=== PATIENT | male | born 1955 | race African-American/Black ===

== ENCOUNTER 2017-08-17 15:20 | Emergency (ER) | payer MEDICARE ==
[2016-01-03 10:15] VITALS: BMI 41.6
[~2017-08-17 15:20] MED LIST: BAYER CHEWABLE81 MG PO; CIPRO500 MG PO; GEMFIBROZIL600 MG PO; GLUCOPHAGE1000 MG PO; GLUCOPHAGE500 MG PO; GLUCOTROL 5 MG T5 MG PO; HUMALOG 30100 UNITS/ SC; LANTUS SOL100 UNIT/1 SQ; LISINOPRIL-HCTZ1 T11 PO; LISINOPRIL2.5 MG PO; MULTI-DAY VITAM1 TAB PO; NORVASC5 MG PO; PRINIVIL20 MG PO; ZOCOR40 MG PO
== END 2017-08-17 17:47 | disposition home or self-care (01) ==
LOC: D.ER 15:20
DX: M62.838 Other muscle spasm (principal); S16.1XXA Strain of muscle, fascia and tendon at neck level, initial encounter; V43.62XA Car passenger injured in collision with other type car in traffic accident, initial encounter; Y93.89 Activity, other specified; Y92.410 Unspecified street and highway as the place of occurrence of the external cause; S29.012A Strain of muscle and tendon of back wall of thorax, initial encounter; S39.012A Strain of muscle, fascia and tendon of lower back, initial encounter; I10 Essential (primary) hypertension; E11.9 Type 2 diabetes mellitus without complications; Z79.4 Long term (current) use of insulin

== ENCOUNTER 2017-11-01 20:54 | Inpatient (IN) | payer MEDICARE, MEDICAID ==
[~2017-11-01] VITALS: Ht 167.6 cm; Wt 110.9 kg
--- NOTE | ~2017-11-01 | HP ---
PATIENT: SHERRY FOLEY MEDICAL RECORD: [id number] ACCOUNT: [id number] LOCATION:[facility] D.2303 : 53 ADMISSION DATE: 11/01/17 HISTORY AND PHYSICAL EXAMINATION REASON FOR ADMISSION: Dizziness and not feeling well with nausea. HISTORY OF PRESENT ILLNESS: The patient is a 62-year-old -Norwegian male with history of poorly controlled diabetes mellitus type 2. His brother tried to help him with his insulin, but due to poor compliance, he is not well controlled. He states he has been taking his insulin appropriately, but over the weekend, had been to a celebration and ate a lot of starches and blood sugar became quite high, became very dizzy and lightheaded. He presented to the Emergency Room for this reason and was found to have small positive serum ketones and blood sugar over 800. He is admitted to the ICU and placed on insulin drip protocol. Denies any recent fever, severe abdominal pain or dysuria. PAST MEDICAL HISTORY: Type 2 diabetes mellitus poorly controlled, morbid obesity, BPH, mild mental retardation. He is admitted for uncontrolled diabetes, azotemia in November of 2013, essential hypertension, hyperlipidemia, adult obstructive sleep apnea, poorly compliant on BiPAP, mitral regurgitation mild. He is admitted for acute renal insufficiency due to dehydration 01/02/2016, responding to IV fluids. He had a fall with right rotator cuff injury in July, which is improved. Osteoarthritis. PAST SURGICAL HISTORY: Hemorrhoidectomy. FAMILY HISTORY: Father and mother . Father had hypertension. Mother had hypertension. Sister with CAD who is still alive. SOCIAL HISTORY: Nonsmoker, nondrinker. His brother tries to help care for him. He has worked at a [employer] in the past. MEDICATIONS: Lisinopril HCT 20/25 one q.a.m., Lantus SoloSTAR 40 units in the morning, 20 units in the evening subq, metformin 1000 mg p.o. b.i.d., amlodipine 5 mg b.i.d., baclofen 10 mg h.s. p.r.n. muscle spasm, Meloxicam 15 mg p.o. daily, atorvastatin 20 mg with evening meal, gemfibrozil 600 mg b.i.d., Proventil HFA 1-2 puffs q.8 hours p.r.n. wheezing, aspirin 325 mg a day, multivitamin 1 daily. REVIEW OF SYSTEMS: GENERAL: Fatigue for the last 24 hours without fever and malaise. HEENT: No recent new visual change, sinus congestion, sore throat or hearing difficulty. RESPIRATORY: No SOB or cough. CARDIAC: No chest pain or palpitations. GASTROINTESTINAL: Nausea with some vomiting on the day of admission. Denies change in stools, diarrhea, blood per rectum. GENITOURINARY: Nocturia once nightly. ENDOCRINE: Denies polyuria. Denies any polydipsia. MUSCULOSKELETAL: Has arthralgias in the lumbar spine, no sciatica. INTEGUMENT: No rash or itching. PSYCHIATRIC: Denies depressed mood. HISTORY AND PHYSICAL [id number] SHERRY FOLEY PHYSICAL EXAMINATION: VITAL SIGNS: Temperature 97, heart rate 90 and regular, respirations 18, blood pressure 100/55, with a sat 99% on room air. Height is 5 feet 10 inches, weight is 148 kilograms, BMI of 46.9. HEENT: Normocephalic. Eyes are clear, nonicteric. Mucous membranes are dry. NECK: Supple. CHEST: Lungs are clear throughout. HEART: Tachycardic without murmur or gallop. ABDOMEN: Grossly obese, nontender. No organomegaly. GENITOURINARY: Deferred. EXTREMITIES: He has 2+ mild pedal edema bilaterally. SKIN: No obvious skin lesions on his feet. NEUROLOGIC: He has decreased sensation to touch in bottoms of both feet. He is oriented to person, place, and time. Cranial nerves grossly intact. Gait is normal. LABORATORY DATA: Initial blood sugar was 892, BUN and creatinine are 38 and 2.6. Sodium is 125, potassium 5.6. Serum ketones are small. ASSESSMENT: 1. Type 2 diabetes mellitus, poorly controlled, now with ketosis, but normal serum CO2. 2. Hyperkalemia due to acidosis. 3. Hyponatremia due to hyperglycemia. 4. Acute renal insufficiency due to dehydration. 5. Hypertension. 6. Hyperlipidemia. 7. Morbid obesity. 8. Obstructive sleep apnea. 9. Osteoarthritis. 10. Mild mental retardation. 11. Poor medical compliance. PLAN: The patient is admitted to the ICU for IV insulin drip until blood sugars corrected. We will monitor potassium closely. Give IV fluids for renal insufficiency. Further workup pending clinical course. TRANSINT:[id number] Voice Confirmation ID: [id number] DOCUMENT ID: [id number] KYLE STEEL MD at 0756 CC: [id number] DICTATION DATE: 11/03/17833 GENERAL WAREHOUSE WORKER: 11/03/17 1036 ADM IN [facility] [address] [place] [address]
[2017-11-01 22:43] LABS: BASOPHILS 0.6 % (0-2); EOSINOPHILS 3.2 % (0-7); HEMATOCRIT 42.3 % (42.0-54.0); HEMOGLOBIN 14.4 g/dL (13.5-17.5); IMMATURE GRANULOCYTES 0.3 % (0-5); MCH 31.4 pg (26.0-34.0); MCV 92.4 fL (80.0-100.0); MEAN PLATELET VOLUME 10.6 fL (7.4-10.4); MONOCYTES 9.1 % (2-11); NEUTROPHILS 50.8 % (40-80); PLATELET COUNT 238 10x3/uL (130-400); RBC 4.58 10x6/uL (4.20-6.10); RDW 13.3 % (11.5-14.5); WBC 7.2 10x3/uL (4.8-10.8)
[2017-11-01 22:57] LABS: ANION GAP 16.1 mmol/L (8-16); BILIRUBIN - TOTAL 0.5 mg/dL (0.2-1.3); CALCIUM 9.8 mg/dL (8.5-10.1); CARBON DIOXIDE 28.5 mmol/L (21.0-32.0); CREATININE - SERUM 2.6 mg/dL (0.6-1.3); POTASSIUM - SERUM 5.6 mmol/L (3.5-5.1)
[2017-11-02] VITALS (24 sets, daily range): BP systolic 83–146; BP diastolic 47–80; Ht 167.6 cm; Wt 110.9 kg
[2017-11-02 00:05] LABS: MAGNESIUM - SERUM 2.7 mg/dL (1.8-2.4); PHOSPHOROUS 3.9 mg/dL (2.5-4.9)
[2017-11-02 00:34] LABS: APPEARANCE CLEAR (CLEAR); BILIRUBIN NEGATIVE (NEGATIVE); COLOR YELLOW (YELLOW); GLUCOSE 1000 mg/dL (NEGATIVE); KETONE NEGATIVE (NEGATIVE); NITRITE NEGATIVE (NEGATIVE); PROTEIN NEGATIVE (NEGATIVE); SPECIFIC GRAVITY 1.015 (1.005-1.020); UROBILINOGEN NORMAL (NORMAL)
[2017-11-02 04:55] LABS: BASOPHILS 0.6 % (0-2); EOSINOPHILS 2.8 % (0-7); HEMATOCRIT 36.3 % (42.0-54.0); HEMOGLOBIN 12.5 g/dL (13.5-17.5); IMMATURE GRANULOCYTES 0.4 % (0-5); LYMPHOCYTES 41.9 % (15-50); MCH 30.9 pg (26.0-34.0); MCHC 34.4 g/dL (31.0-37.0); MEAN PLATELET VOLUME 10.2 fL (7.4-10.4); MONOCYTES 6.9 % (2-11); NEUTROPHILS 47.4 % (40-80); PLATELET COUNT 230 10x3/uL (130-400); RBC 4.05 10x6/uL (4.20-6.10); RDW 12.7 % (11.5-14.5); WBC 6.8 10x3/uL (4.8-10.8)
[2017-11-02 05:05] LABS: MCV 89.6 fL (80.0-100.0)
[2017-11-02 05:53] LABS: ANION GAP 16.9 mmol/L (8-16); CALCIUM 8.9 mg/dL (8.5-10.1); CARBON DIOXIDE 21.7 mmol/L (21.0-32.0); CREATININE - SERUM 2.1 mg/dL (0.6-1.3); MAGNESIUM - SERUM 2.3 mg/dL (1.8-2.4)
[2017-11-02 05:57] LABS: POTASSIUM - SERUM 3.6 mmol/L (3.5-5.1)
[2017-11-02 09:43] LABS: ANION GAP 15.9 mmol/L (8-16); CALCIUM 9.3 mg/dL (8.5-10.1); CARBON DIOXIDE 25.9 mmol/L (21.0-32.0); CREATININE - SERUM 2.3 mg/dL (0.6-1.3); MAGNESIUM - SERUM 2.4 mg/dL (1.8-2.4); POTASSIUM - SERUM 3.8 mmol/L (3.5-5.1)
[2017-11-02 13:11] LABS: ANION GAP 17.1 mmol/L (8-16); CARBON DIOXIDE 24.6 mmol/L (21.0-32.0); CREATININE - SERUM 2.1 mg/dL (0.6-1.3); MAGNESIUM - SERUM 2.3 mg/dL (1.8-2.4); POTASSIUM - SERUM 3.7 mmol/L (3.5-5.1)
[2017-11-03] VITALS (24 sets, daily range): BP systolic 96–155; BP diastolic 56–102
[2017-11-03 04:45] LABS: HEMATOCRIT 34.9 % (42.0-54.0); HEMOGLOBIN 12.1 g/dL (13.5-17.5); MCH 31.3 pg (26.0-34.0); MCHC 34.7 g/dL (31.0-37.0); MCV 90.4 fL (80.0-100.0); MEAN PLATELET VOLUME 10.4 fL (7.4-10.4); PLATELET COUNT 213 10x3/uL (130-400); RBC 3.86 10x6/uL (4.20-6.10); RDW 12.8 % (11.5-14.5); WBC 7.4 10x3/uL (4.8-10.8)
[2017-11-03 04:57] LABS: ANION GAP 13.8 mmol/L (8-16); CALCIUM 8.9 mg/dL (8.5-10.1); CARBON DIOXIDE 24.7 mmol/L (21.0-32.0); POTASSIUM - SERUM 3.5 mmol/L (3.5-5.1)
[2017-11-03 05:00] LABS: CREATININE - SERUM 1.5 mg/dL (0.6-1.3)
[2017-11-03 05:49] LABS: EOSINOPHILS 6 % (0-7); LYMPHOCYTES 63 % (15-50); MONOCYTES 3 % (2-11); NEUTROPHILS 28 % (40-80); PLATELET ESTIMATE NORMAL
[2017-11-04] VITALS (21 sets, daily range): BP systolic 110–159; BP diastolic 59–100
[2017-11-04 05:05] LABS: EOSINOPHILS 5.5 % (0-7); HEMATOCRIT 34.7 % (42.0-54.0); HEMOGLOBIN 11.7 g/dL (13.5-17.5); IMMATURE GRANULOCYTES 0.3 % (0-5); LYMPHOCYTES 53.4 % (15-50); MCH 30.6 pg (26.0-34.0); MCHC 33.7 g/dL (31.0-37.0); MCV 90.8 fL (80.0-100.0); MEAN PLATELET VOLUME 10.4 fL (7.4-10.4); MONOCYTES 11.4 % (2-11); NEUTROPHILS 28.4 % (40-80); PLATELET COUNT 216 10x3/uL (130-400); RBC 3.82 10x6/uL (4.20-6.10); RDW 12.7 % (11.5-14.5); WBC 7.3 10x3/uL (4.8-10.8)
[2017-11-05 02:53] LABS: BASOPHILS 0.9 % (0-2); EOSINOPHILS 5.2 % (0-7); HEMATOCRIT 34.3 % (42.0-54.0); HEMOGLOBIN 11.4 g/dL (13.5-17.5); IMMATURE GRANULOCYTES 0.6 % (0-5); LYMPHOCYTES 52.4 % (15-50); MCH 30.5 pg (26.0-34.0); MCHC 33.2 g/dL (31.0-37.0); MCV 91.7 fL (80.0-100.0); MEAN PLATELET VOLUME 10.1 fL (7.4-10.4); NEUTROPHILS 28.9 % (40-80); PLATELET COUNT 207 10x3/uL (130-400); RBC 3.74 10x6/uL (4.20-6.10); RDW 12.7 % (11.5-14.5); WBC 6.7 10x3/uL (4.8-10.8)
[2017-11-05 03:00] VITALS: BP 146/82
[2017-11-05 03:03] LABS: CALCIUM 9.5 mg/dL (8.5-10.1); CARBON DIOXIDE 26.2 mmol/L (21.0-32.0); CREATININE - SERUM 1.3 mg/dL (0.6-1.3)
[2017-11-05 03:09] LABS: POTASSIUM - SERUM 4.2 mmol/L (3.5-5.1)
[2017-11-05 07:00] VITALS: BP 150/78
[2017-11-05] MEDS ORDERED: GLUCOPHAGE500 MG PO (07:48)
[2017-11-05] MEDS ORDERED: LANTUS SOL100 UNIT/1 SC (07:48)
[2017-11-05 08:00] VITALS: BP 186/94
[2017-11-05 09:00] VITALS: BP 168/83
== END 2017-11-05 11:19 | disposition home or self-care (01) | DRG 638 ==
LOC: D.ER 20:54 → D.EDHOLD 23:47 → D.ICU 23:47 → D.CVICU 23:47 → D.ICU 11-02 00:34
PROVIDERS: Family Medicine
DX: E11.10 Type 2 diabetes mellitus with ketoacidosis without coma (principal); E87.1 Hypo-osmolality and hyponatremia; I10 Essential (primary) hypertension; E78.5 Hyperlipidemia, unspecified; N28.9 Disorder of kidney and ureter, unspecified; D64.9 Anemia, unspecified; E86.0 Dehydration; E87.5 Hyperkalemia; R41.0 Disorientation, unspecified; E66.01 Morbid (severe) obesity due to excess calories; Z68.38 Body mass index [BMI] 38.0-38.9, adult; F70 Mild intellectual disabilities

== ENCOUNTER 2018-05-17 22:17 | Emergency (ER) | payer MEDICARE, MEDICAID ==
[~2018-05-17] VITALS: Ht 167.6 cm; Wt 143.2 kg
[~2018-05-17 22:17] MED LIST changes: +LANTUS SOL100 UNIT/1 SC
[2018-05-17 22:27] VITALS: Ht 167.6 cm; Wt 143.2 kg
[2018-05-17 22:58] LABS: BASOPHILS 0.8 % (0-2); EOSINOPHILS 5.2 % (0-7); HEMATOCRIT 33.8 % (42.0-54.0); HEMOGLOBIN 11.3 g/dL (13.5-17.5); IMMATURE GRANULOCYTES 0.3 % (0-5); LYMPHOCYTES 36.6 % (15-50); MCH 30.3 pg (26.0-34.0); MCHC 33.4 g/dL (31.0-37.0); MCV 90.6 fL (80.0-100.0); MEAN PLATELET VOLUME 9.5 fL (7.4-10.4); NEUTROPHILS 46.1 % (40-80); RBC 3.73 10x6/uL (4.20-6.10); RDW 15.4 % (11.5-14.5); WBC 7.5 10x3/uL (4.8-10.8)
[2018-05-17 22:59] LABS: PLATELET COUNT 257 10x3/uL (130-400)
[2018-05-17 23:16] LABS: ALBUMIN 3.3 g/dL (3.4-5.0); ALKALINE PHOSPHATASE 68 U/L (46-116); ALT (SGPT) 25 U/L (10-68); CALC OSMOLALITY 283 mosm/kg (275-300); CALCIUM 8.2 mg/dL (8.5-10.1); CARBON DIOXIDE 27.8 mmol/L (21.0-32.0); CHLORIDE - SERUM 101 mmol/L (98-107); CREATININE - SERUM 1.1 mg/dL (0.6-1.3); PROTEIN - SERUM 8.3 g/dL (6.4-8.2); SODIUM 139 mmol/L (136-145); UREA NITROGEN 15 mg/dL (7-18); eGFR NON AFRICAN AMERICAN 71 mL/min (90-120)
[2018-05-17 23:18] LABS: GLUCOSE 197 mg/dL (74-106)
[2018-05-17 23:21] LABS: APTT 28.1 SECONDS (22.8-39.4); INR 1.05 (0.85-1.17); PROTIME 13.2 SECONDS (11.6-15.0)
[2018-05-17 23:25] LABS: CKMB 2.9 U/L (0.0-3.6); PRO BNP 113 pg/mL (0-125)
[2018-05-17 23:30] LABS: CREATINE KINASE 1649 UL (21-232); TROPONIN-I < 0.017 ng/mL (0.000-0.060)
[2018-05-18] MEDS ORDERED: ALBUTEROL SULF8.5 GM INH (01:48)
[2018-05-18] MEDS ORDERED: TAMIFLU75 MG PO (01:48)
[2018-05-18 02:01] VITALS: BP 170/87
== END 2018-05-18 02:02 | disposition home or self-care (01) ==
LOC: D.ER 22:17
PROVIDERS: Family Medicine
DX: J11.1 Influenza due to unidentified influenza virus with other respiratory manifestations (principal); E86.0 Dehydration; R74.8 Abnormal levels of other serum enzymes; R07.9 Chest pain, unspecified; R06.02 Shortness of breath; E11.9 Type 2 diabetes mellitus without complications

== ENCOUNTER 2018-05-18 16:24 | Inpatient (IN) | payer MEDICARE, MEDICAID ==
[~2018-05-18] VITALS: Ht 167.6 cm; Wt 117.3 kg
--- NOTE | ~2018-05-18 | HP ---
PATIENT: SHERRY FOLEY MEDICAL RECORD: [id number] ACCOUNT: [id number] LOCATION:[address]01 : 53 ADMISSION DATE: 05/18/18 PCP: KYLE STEEL MD HISTORY AND PHYSICAL EXAMINATION HISTORY OF PRESENT ILLNESS: A 63-year-old -Emirati male presented with 4-day history of cough, congestion, and high fever to 101. Became more short of breath and presented to the Emergency Room yesterday at [place]. Chest x-ray showed some interstitial changes, no clarissa pneumonia. His blood gas showed a pO2 of 81 on 2 liters. He did not see a room air O2 sat recorded. He has tested negative for flu A and B, but he was exposed to flu by some siblings. He has got worse overnight and in our office this morning, he desaturated to 86%. On 2 liters, corrected to 92%. He has audible wheezes, coughing, and just does not feel well. He complains of headache, generalized myalgias. He had sputum production and is somewhat off color. PAST MEDICAL HISTORY: Poorly controlled type 2 diabetes mellitus, exogenous obesity, reactive airways, hypertension, obstructive sleep apnea, mild mental retardation, hyperlipidemia, mild mitral regurgitation, history of renal insufficiency due to dehydration in 2015, rotator cuff injury in the right shoulder in July of 2015. PAST SURGICAL HISTORY: Hemorrhoidectomy. FAMILY HISTORY: Father and mother are . Father had hypertension. Mother had hypertension. One sister with CAD, is still living. He has 1 brother who cares for him. SOCIAL HISTORY: Nonsmoker, nondrinker. He has worked for [employer] in the past. CURRENT MEDICATIONS: Atrovent nasal spray 0.03%, 1 squirt each nostril twice a day; Zyrtec 10 mg p.o. daily; Flonase nasal spray 2 nasal sprays each nostril daily; amlodipine 5 mg b.i.d., metformin 1000 mg p.o. b.i.d.; simvastatin 40 mg at bedtime; Lantus 40 units subQ b.i.d. a.c.; gemfibrozil 600 mg p.o. b.i.d., aspirin 81 mg daily, lisinopril 20, HCTZ 25 one tab daily, and multivitamin 1 daily. ALLERGIES: PENICILLIN. REVIEW OF SYSTEMS: GENERAL: He has got fever to 101 for the last 2-3 days. He has had malaise, poor appetite, and headache. HEENT: No recent visual change, sinus congestion, sore throat, but positive for headache. He has had some photophobia. RESPIRATORY: He has wheezing and coughing up some yellowish sputum. He feels short of breath when he walks. CARDIAC: No exertional chest pain, claudication, or increasing edema. GASTROINTESTINAL: Has some nausea without vomiting, change in stools or blood per rectum. GENITOURINARY: No dysuria. He has nocturia once nightly. ENDOCRINE: Denies polyuria, polydipsia, heat or cold intolerance. NEUROLOGIC: No history of stroke, TIA, or vascular headaches. He has a low IQ. MUSCULOSKELETAL: Denies cervical neck pain, lumbago at this time. PSYCHIATRIC: Denies depress mood. HISTORY AND PHYSICAL [id number] SHERRY FOLEY PHYSICAL EXAMINATION: VITAL SIGNS: Weight 267 pounds, height 5 feet 6 inches with a 43 BMI. O2 sat was 86% on room air, correcting to 92% on 2 liters; heart rate was 90 and regular; blood pressure 162/80; temperature 99 degrees Fahrenheit. GENERAL: The patient appears mildly ill, but alert. HEENT: Eyes are clear. Oropharynx unremarkable. NECK: Supple. CHEST: He has expiratory wheezes bilaterally without rales. HEART: Regular rate and rhythm. ABDOMEN: Obese, soft, nontender, no organomegaly. EXTREMITIES: 2+ bipedal edema. NEUROLOGICAL: Grossly intact. Gait is normal. LABORATORY DATA: Labs last night are noted including negative flu A and B, although he has had recent exposure. Chest x-ray showing some interstitial changes. ASSESSMENT: 1. Asthmatic bronchitis, failing outpatient therapy. 2. Probable influenza. 3. Obstructive sleep apnea. 4. Hypertension. 5. Obesity, uncontrolled. 6. Diabetes mellitus. 7. Hyperlipidemia. PLAN: The patient admitted to the hospital for respiratory isolation, IV antibiotics, updrafts, antipyretics. Further workup pending clinical course and sliding scale insulin. TRANSINT:[id number] Voice Confirmation ID: [id number] DOCUMENT ID: [id number] KYLE STEEL MD at 0937 CC: [id number] DICTATION DATE: 05/18/18 1701 HYDROELECTRIC PRODUCTION TECHNICIAN: 05/18/18 1800 ADM IN [facility] [address] [place] [id number]
--- NOTE | ~2018-05-18 | MORECARE ---
CASE MANAGEMENT DISCHARGE SUMMARY PATIENT: SHERRY FOLEY UNIT: [id number] ADM DATE: 05/18/18 AGE: 63 : 53 SEX: M ROOM/BED: D.2102 AUTHOR: AMY MICHAELS PHYSICIAN: REFERRING PHYSICIAN: KYLE STEEL MD DATE OF SERVICE: 05/23/18 Discharge Plan Patient Name: SHERRY FOLEY [facility] [facility] 1955 Planned Disposition: Home Anticipated Discharge Date: 05/22/18 Discharge Date: 05/22/2018 Expected LOS: 4 Initial Reviewer: [email or web address] Initial Review Date: 05/23/2018 Generated: 05/23/18 12:01 pm Patient Name: SHERRY FOLEY Page [id number] at 1101 All edits/amendments must be made on the electronic document DICTATION DATE: 05/23/181100 PREKINDERGARTEN TEACHER: LUIS 05/23/18 110 RPT#: [id number] DC DATE:05/22/18 STATUS: DIS IN [facility] [address] [address] END OF REPORT
[~2018-05-18 16:24] MED LIST changes: +ALBUTEROL SULF8.5 GM INH; +TAMIFLU75 MG PO
[2018-05-18 17:46] VITALS: BP 184/78; Ht 167.6 cm; Wt 117.3 kg
[2018-05-18 21:24] VITALS: BP 145/64
[2018-05-18 21:33] LABS: BASOPHILS 0.7 % (0-2); EOSINOPHILS 2.5 % (0-7); HEMATOCRIT 35.3 % (42.0-54.0); HEMOGLOBIN 11.8 g/dL (13.5-17.5); IMMATURE GRANULOCYTES 0.3 % (0-5); LYMPHOCYTES 38.7 % (15-50); MCH 30.2 pg (26.0-34.0); MCHC 33.4 g/dL (31.0-37.0); MCV 90.3 fL (80.0-100.0); MEAN PLATELET VOLUME 9.4 fL (7.4-10.4); MONOCYTES 6.3 % (2-11); NEUTROPHILS 51.5 % (40-80); PLATELET COUNT 252 10x3/uL (130-400); RBC 3.91 10x6/uL (4.20-6.10); RDW 15.3 % (11.5-14.5); WBC 7.6 10x3/uL (4.8-10.8)
[2018-05-18 22:03] LABS: CARBON DIOXIDE 28.7 mmol/L (21.0-32.0); CREATININE - SERUM 1.1 mg/dL (0.6-1.3); POTASSIUM - SERUM 3.7 mmol/L (3.5-5.1)
[2018-05-19] VITALS: BP 125/73
[2018-05-19 05:02] VITALS: BP 147/72
[2018-05-19 08:07] VITALS: BP 141/55
[2018-05-19 11:44] VITALS: BP 140/52
[2018-05-19 20:00] VITALS: BP 133/68
[2018-05-20 04:00] VITALS: BP 134/70
[2018-05-20 08:00] VITALS: BP 117/69
[2018-05-20 11:42] VITALS: BP 115/70
[2018-05-20 12:34] LABS: APPEARANCE CLEAR (CLEAR); COLOR YELLOW (YELLOW); GLUCOSE 50 mg/dL (NEGATIVE); KETONE NEGATIVE (NEGATIVE); NITRITE NEGATIVE (NEGATIVE); PROTEIN NEGATIVE (NEGATIVE)
[2018-05-20 12:35] LABS: BILIRUBIN NEGATIVE (NEGATIVE); UROBILINOGEN NORMAL (NORMAL)
[2018-05-20 16:09] VITALS: BP 134/79
[2018-05-20 17:55] VITALS: BP 148/65
[2018-05-20 23:55] VITALS: BP 140/65
[2018-05-21 03:45] VITALS: BP 156/77
[2018-05-21 08:26] VITALS: BP 160/75
[2018-05-21 11:11] VITALS: BP 150/72
[2018-05-21 15:07] VITALS: BP 158/70
[2018-05-21 17:00] VITALS: BP 143/65
[2018-05-22] VITALS: BP 135/63
[2018-05-22 05:37] VITALS: BP 112/60
[2018-05-22] MEDS ORDERED: ZITHROMAX250 MG PO (14:38)
[2018-05-22] MEDS ORDERED: LEVAQUIN750 MG PO (14:38)
== END 2018-05-22 16:22 | disposition home or self-care (01) | DRG 194 ==
LOC: D.M2 16:24 → D.SDCHOLD 16:24 → D.M2 16:37 → D.SDCHOLD 05-19 18:40 → D.M2 05-19 18:43
PROVIDERS: Family Medicine
DX: J11.00 Influenza due to unidentified influenza virus with unspecified type of pneumonia (principal); J45.901 Unspecified asthma with (acute) exacerbation; J11.1 Influenza due to unidentified influenza virus with other respiratory manifestations; N28.9 Disorder of kidney and ureter, unspecified; E11.9 Type 2 diabetes mellitus without complications; G47.33 Obstructive sleep apnea (adult) (pediatric); I10 Essential (primary) hypertension; E78.5 Hyperlipidemia, unspecified

== ENCOUNTER 2018-08-20 01:42 | Emergency (ER) | payer OTHER ==
[~2018-08-20] VITALS: Ht 177.8 cm; Wt 129.5 kg
[~2018-08-20 01:42] MED LIST changes: +LEVAQUIN750 MG PO; +ZITHROMAX250 MG PO
[2018-08-20 01:49] VITALS: Ht 177.8 cm; Wt 129.5 kg
[2018-08-20 02:12] LABS: BASOPHILS 1.2 % (0-2); EOSINOPHILS 5.2 % (0-7); HEMATOCRIT 41.7 % (42.0-54.0); IMMATURE GRANULOCYTES 0.3 % (0-5); LYMPHOCYTES 54.8 % (15-50); MCH 30.9 pg (26.0-34.0); MCHC 33.6 g/dL (31.0-37.0); MCV 92.1 fL (80.0-100.0); NEUTROPHILS 31.5 % (40-80); PLATELET COUNT 227 10x3/uL (130-400); RBC 4.53 10x6/uL (4.20-6.10); RDW 13.8 % (11.5-14.5); WBC 6.6 10x3/uL (4.8-10.8)
[2018-08-20 02:26] LABS: KETONE - SERUM NEGATIVE (NEGATIVE)
[2018-08-20 02:28] LABS: ALBUMIN 3.8 g/dL (3.4-5.0); ALKALINE PHOSPHATASE 180 U/L (46-116); ALT (SGPT) 18 U/L (10-68); BILIRUBIN - TOTAL 0.18 mg/dL (0.2-1.3); CALCIUM 9.4 mg/dL (8.5-10.1); CARBON DIOXIDE 26.3 mmol/L (21.0-32.0); CHLORIDE - SERUM 99 mmol/L (98-107); CREATININE - SERUM 1.3 mg/dL (0.6-1.3); MAGNESIUM - SERUM 1.7 mg/dL (1.8-2.4); POTASSIUM - SERUM 4.8 mmol/L (3.5-5.1); PROTEIN - SERUM 8.5 g/dL (6.4-8.2); SODIUM 134 mmol/L (136-145); UREA NITROGEN 19 mg/dL (7-18); eGFR NON AFRICAN AMERICAN 59 mL/min (90-120)
[2018-08-20 02:30] LABS: CALC OSMOLALITY 293 mosm/kg (275-300); GLUCOSE 539 mg/dL (74-106)
[2018-08-20 02:49] LABS: APPEARANCE CLEAR (CLEAR); BILIRUBIN NEGATIVE (NEGATIVE); COLOR YELLOW (YELLOW); GLUCOSE 1000 mg/dL (NEGATIVE); KETONE NEGATIVE (NEGATIVE); NITRITE NEGATIVE (NEGATIVE); PROTEIN NEGATIVE (NEGATIVE); UROBILINOGEN NORMAL (NORMAL)
[2018-08-20 03:40] VITALS: BP 146/78
== END 2018-08-20 03:40 | disposition home or self-care (01) ==
LOC: D.ER 01:42
PROVIDERS: Family Medicine
DX: E11.65 Type 2 diabetes mellitus with hyperglycemia (principal); Z79.4 Long term (current) use of insulin

== ENCOUNTER 2019-05-25 14:59 | Inpatient (IN) | payer OTHER ==
[2019-05-25] VITALS (30 sets, daily range): BP systolic 80–134; BP diastolic 23–77
[~2019-05-25] VITALS: Ht 177.8 cm; Wt 100.0 kg
--- NOTE | ~2019-05-25 | EC ---
PATIENT:SHERRY FOLEY DATE OF SERVICE: 05/25/19 SEX: M MEDICAL RECORD: [id number] DATE OF : [birth year] LOCATION:D.M2 D.213 AGE OF PATIENT: 64 ADMISSION DATE: 05/25/19 REFERRING PHYSICIAN: INTERPRETING PHYSICIAN: ROMARIO GROSS MD ECHOCARDIOGRAM REPORT ECHO CHARGES 4 ECHO COMPLETE Date: 05/26/19 CLINICAL DIAGNOSIS: ASSESS FOR CHF ECHOCARDIOGRAPHIC MEASUREMENTS (adult normal given) AC root (d.<3.7cm) 2.9 cm LV Septum d (<1.2 cm> 1.2 cm Valve Excursion 2.1 cm LV Septum (systole) 1.6 cm Left Atria (s.<4.0cm> 3.9 cm LVPW d(<1.2cm) 0.9 cm RV (d.<2.3cm) 2.7 cm LVPW (sytole) 1.1 cm LV diastole(<5.6CM) 4.7 cm MV E-F(>70mm/sec) cm LV systole 3.4 cm LVOT Diameter 1.8 cm MV exc.(>10mm) cm Est.ejection fraction (50-75%) % DOPPLER: LVIT cm/sec A 79 cm/sec E 104 cm/sec LA cm/sec RVSP 21.2 mmHg LVOT 125 cm/sec AOP1/2T m/s Asc. Ao 138 cm/sec RVOT 106 cm/sec RA cm/sec PA 107 cm/sec AV Gradient Peak 7.6 mmHg AV Mean 4.2 mmHg AV Area 2.5 cm MV Gradient Peak 5.6 mmHg MV Mean 2.3 mmHg MV Area cm COMMENTS: Mucker [place]: [place] HAIDEREDEN ABRAHAM Special Effects Designer: 1 Dr. Gross TAPE# PACS Pericardial Effusion N DATE OF SERVICE: 05/26/2019 ECHOCARDIOGRAM FINDINGS: 1. Left ventricular chamber size is within normal limits. Left ventricular systolic function is normal. Overall ejection fraction estimated at 55% to 60%. 2. Left atrium, right atrium, and right ventricle chamber sizes are within normal limits. 3. Valvular structures have normal structure and motion. ECHOCARDIOGRAM REPORT [id number] SHERRY FOLEY 4. Doppler interrogation reveals no significant valvular insufficiency or stenosis. 5. No evidence of pericardial effusion or left ventricular thrombus. TRANSINT:[id number] Voice Confirmation ID: [id number] DOCUMENT ID: [id number] ROMARIO GROSS MD CC: [id number] DICTATION DATE: 05/26/19 1252 GANG PUSHER: 05/26/19 1717 ADM IN [place] [id number] [place] [id number]
[2019-05-25 15:18] LABS: BASOPHILS 0.8 % (0-2); HEMATOCRIT 41.2 % (42.0-54.0); HEMOGLOBIN 13.5 g/dL (13.5-17.5); IMMATURE GRANULOCYTES 0.3 % (0-5); LYMPHOCYTES 32.6 % (15-50); MCH 31.3 pg (26.0-34.0); MCHC 32.8 g/dL (31.0-37.0); MCV 95.4 fL (80.0-100.0); MEAN PLATELET VOLUME 10.9 fL (7.4-10.4); MONOCYTES 6.5 % (2-11); NEUTROPHILS 57.8 % (40-80); PLATELET COUNT 252 10x3/uL (130-400); RBC 4.32 10x6/uL (4.20-6.10); RDW 13.7 % (11.5-14.5); WBC 6.6 10x3/uL (4.8-10.8)
[2019-05-25 15:25] LABS: KETONE - SERUM SMALL mg/dL (NEGATIVE)
[2019-05-25 15:27] LABS: APTT 24.9 SECONDS (22.8-39.4); INR 1.06 (0.85-1.17); PROTIME 13.3 SECONDS (11.6-15.0)
--- NOTE | 2019-05-25 15:55 | NUR ---
MORE ALERT. ANSWERING QUESTIONS WITH CLEAR SPECCH
--- NOTE | 2019-05-25 16:41 | NUR ---
FSBS= 466 MG/DL
--- NOTE | 2019-05-25 16:44 | NUR ---
AFTER MULTIPLE ATTEMPTS FOR 3RD PIV FOR IV ABXS. LANI NEWSOME AT BS FOR EJ. LABS DRAWN INCLUDING 2ND BC AND ABXS INITIATED
[2019-05-25 17:06] LABS: ALBUMIN 2.7 g/dL (3.4-5.0); ALKALINE PHOSPHATASE 79 U/L (46-116); ALT (SGPT) 11 U/L (10-68); BILIRUBIN - TOTAL 0.43 mg/dL (0.2-1.3); CALCIUM 8.5 mg/dL (8.5-10.1); CARBON DIOXIDE 19.1 mmol/L (21.0-32.0); CHLORIDE - SERUM 108 mmol/L (98-107); CKMB 0.6 U/L (0.0-3.6); CREATINE KINASE 63 UL (21-232); CREATININE - SERUM 2.3 mg/dL (0.6-1.3); MAGNESIUM - SERUM 2.1 mg/dL (1.8-2.4); POTASSIUM - SERUM 3.8 mmol/L (3.5-5.1); PROTEIN - SERUM 6.7 g/dL (6.4-8.2); SODIUM 148 mmol/L (136-145); THYROID STIMULATING HORMONE 1.72 uIU/mL (0.36-3.74); UREA NITROGEN 39 mg/dL (7-18); eGFR NON AFRICAN AMERICAN 30 mL/min (90-120)
--- NOTE | 2019-05-25 17:10 | NUR ---
TO CT WITH CM , RN AND MAKE UP GIRL THEN TRANSPORTED TO ICU #[id number], CONDITION STABLE
[2019-05-25 17:20] LABS: CALC OSMOLALITY 324 mosm/kg (275-300); GLUCOSE 497 mg/dL (74-106); TROPONIN-I < 0.017 ng/mL (0.000-0.060)
[2019-05-25 17:21] LABS: APPEARANCE HAZY (CLEAR); BILIRUBIN NEGATIVE (NEGATIVE); COLOR YELLOW (YELLOW); GLUCOSE 1000 mg/dL (NEGATIVE); KETONE SMALL mg/dL (NEGATIVE); NITRITE NEGATIVE (NEGATIVE); PROTEIN 1+ mg/dL (NEGATIVE); SPECIFIC GRAVITY 1.015 (1.005-1.020); UROBILINOGEN NORMAL (NORMAL)
[2019-05-25 17:22] LABS: AMORPHOUS SEDIMENT >1+ /lpf (NONE SEEN); BACTERIA FEW /hpf (NEGATIVE); EPITHELIAL CELLS 0-5 /hpf (0-5); RED CELLS - URINE 0-5 /hpf (0-5); WHITE CELLS - URINE 0-5 /hpf (NEGATIVE)
[2019-05-25 17:29] LABS: UDS - AMPHET NEGATIVE QUAL (NEGATIVE); UDS - BARB NEGATIVE QUAL (NEGATIVE); UDS - BENZO NEGATIVE QUAL (NEGATIVE); UDS - COCAINE NEGATIVE QUAL (NEGATIVE); UDS - OPIATE NEGATIVE QUAL (NEGATIVE); UDS - PCP NEGATIVE QUAL (NEGATIVE); UDS - THC NEGATIVE QUAL (NEGATIVE)
[2019-05-25] MEDS ORDERED: EUCRISA 2% TOPICAL (17:37)
[2019-05-25] MEDS ORDERED: VALSARTAN-HCTZ1 EAC2 PO (17:38)
[2019-05-25] MEDS ORDERED: GLUCOPHAGE1000 MG PO (17:39)
[2019-05-25] MEDS ORDERED: AFLURIA (17:39)
[2019-05-25] MEDS ORDERED: ZYRTEC10 MG PO (17:41)
--- NOTE | 2019-05-25 19:30 | NUR ---
PT ALERT, VOICES NEEDS, LUNGS CLEAR, LEFT AND RIGHT PIV'S INTACT WITH IVF INFUSING, MCLEAN PATENT TO BSD WITH CLEAR YELLOW URINE, VITALS STABLE
--- NOTE | 2019-05-25 20:00 | NUR ---
CALLED DR STEEL, PT C/O CONSTIPATION, UPDATED ON PT STATUS, ORDERS RECIEVED, VITALS STABLE
--- NOTE | 2019-05-25 22:00 | NUR ---
PT RESTING QUIETLY WITH EYES CLOSED, WILL CONT TO MONITOR
[2019-05-26] VITALS (23 sets, daily range): BP systolic 96–137; BP diastolic 49–64; BMI 31.6
--- NOTE | 2019-05-26 | NUR ---
PT RESTING QUIETLY, AROUSES EASILY WITH NO C/O, VITALS STABLE, WEANING LEVOPHED GTT
--- NOTE | 2019-05-26 | NUR ---
PT REMAINS SEDATED, OGT TO CORKY, ETT PATENT TO VENT, NO DISTRESS NOTED
--- NOTE | 2019-05-26 02:00 | NUR ---
PT SLEEPING WITHOUT DISTRESS, CONT TO WEAN LEVOPHED, VITALS STABLE
[2019-05-26 04:01] LABS: BASOPHILS 0.4 % (0-2); EOSINOPHILS 3.5 % (0-7); HEMATOCRIT 35.9 % (42.0-54.0); HEMOGLOBIN 11.4 g/dL (13.5-17.5); IMMATURE GRANULOCYTES 0.4 % (0-5); MCH 30.3 pg (26.0-34.0); MCHC 31.8 g/dL (31.0-37.0); MCV 95.5 fL (80.0-100.0); MEAN PLATELET VOLUME 10.2 fL (7.4-10.4); MONOCYTES 9.2 % (2-11); NEUTROPHILS 56.5 % (40-80); RBC 3.76 10x6/uL (4.20-6.10); RDW 13.8 % (11.5-14.5)
[2019-05-26 04:06] LABS: PLATELET COUNT 187 10x3/uL (130-400); WBC 8.9 10x3/uL (4.8-10.8)
[2019-05-26 04:14] LABS: ALBUMIN 2.4 g/dL (3.4-5.0); BILIRUBIN - TOTAL 0.27 mg/dL (0.2-1.3); CALCIUM 8.3 mg/dL (8.5-10.1); PROTEIN - SERUM 6.7 g/dL (6.4-8.2); VANCOMYCIN - RANDOM 11.5 ug/mL (10.0-20.0)
[2019-05-26 04:15] LABS: CREATININE - SERUM 1.5 mg/dL (0.6-1.3)
--- NOTE | 2019-05-26 04:15 | NUR ---
LEVOPHED GTT DISCONTINUED, VITALS STABLE, PT RESTING QUIETLY, WILL CONT TO MONITOR
--- NOTE | 2019-05-26 05:30 | NUR ---
PT AWAKE, EATING ICE CREAM, VITALS STABLE, NO C/O AT THIS TIME
--- NOTE | 2019-05-26 07:13 | HP ---
PATIENT: SHERRY FOLEY MEDICAL RECORD: [id number] ACCOUNT: [id number] LOCATION:[facility]2313 : 53 ADMISSION DATE: 05/25/19 PCP: KYLE STEEL MD HISTORY AND PHYSICAL EXAMINATION REASON FOR ADMISSION: Confusion. HISTORY OF PRESENT ILLNESS: The patient is a 64-year-old -Indian male who is historically noncompliant with insulin therapy. He has been Lantus 40 units b.i.d. subQ. However, checking his pharmacy it was found that he has not had insulin filled over 6 weeks. His brother said he was acting a little bit fatigued yesterday and then went out and had a large meal this afternoon. He went to the eye doctor for followup on a recent glaucoma surgery and became confused and actually fell out at the eye center. They called our office and had his brother drive him here and the patient was obviously hypotensive, confused, and barely arousable when he reached our office. His pulse was 60 and blood pressure was 60 palpable. Ambulance was called. He was directly sent to the ED. Lab in the office showed a blood sugar over 700, CO2 of 20, and potassium 5.2. No other history could be obtained from the patient due to his altered mental status. PAST MEDICAL HISTORY: Poorly controlled diabetes mellitus type 2, obesity, reactive airways disease, essential hypertension, obstructive sleep apnea, mild mental retardation, hyperlipidemia, mild mitral regurgitation, admitted for dehydration and acute azotemia 2015, rotator cuff injury in the right shoulder in July 2015, and glaucoma. PAST SURGICAL HISTORY: He has had cataract extraction, left eye. He has had glaucoma surgery with a transluminal dilatation and stents 12/14/2018. History of primary open-angle glaucoma of the right eye with phacoemulsification and implantation canaloplasty on the right eye 2018, and history of hemorrhoidectomy. FAMILY HISTORY: Father and mother . Father had hypertension. Mother had hypertension. One sister with CAD, still living. He has 1 brother who helps care for him. SOCIAL HISTORY: Nonsmoker, nondrinker lifelong. He worked for [employer] for years. ALLERGIES: PENICILLIN. CURRENT MEDICATIONS: Eucrisa 2% topical ointment applied to skin twice a day, valsartan/HZT 160/25 one q.a.m., metformin 1000 mg p.o. b.i.d., simvastatin 40 mg at bedtime, Lantus SoloSTAR 40 units subQ b.i.d. with questionable compliance, gemfibrozil 600 mg p.o. b.i.d., amlodipine 5 mg p.o. b.i.d., 81 mg aspirin 1 daily, and Claritin 10 mg p.o. daily. REVIEW OF SYSTEMS: Unobtainable from the patient. Neurologically, the patient has been lethargic today and actually was near syncopal outpatient. PHYSICAL EXAMINATION: GENERAL: The patient is very altered, weak appearing -Indian male who cannot stand and barely answer questions. VITAL SIGNS: His pulse is 85, respirations were 16, blood pressure initially HISTORY AND PHYSICAL [id number] MAC FOLEYALD was 60, however, palpable. After fluid was 109/46 and sat of 96%. HEENT: Eyes are clear. Pupils reactive. NECK: Supple. CHEST: Distant breath sounds without wheeze or rales. HEART: Regular rate and rhythm. ABDOMEN: Morbidly obese, nontender. GENITOURINARY: Deferred. EXTREMITIES: A 2+ mild pedal and trace tibial edema of the knees bilaterally. No skin lesions are noted. NEUROLOGICAL: The patient is disoriented. Rales with a tactile stimuli and open his eyes, but do not speak. No localizing neurologic signs otherwise are noted. LABORATORY DATA: Blood gas with a pH of 7.48, pCO2 of 23, pO2 of 118, base excess of -4. Blood sugar now for over 700 now 686 in the ED, small serum ketones. Urinalysis shows small ketones, 1+ protein, 2-5 red and white cells. INR is 1.06. Sodium is 148, potassium 3.8, chloride 108, CO2 is 19.1, BUN 39, and creatinine 2.3. Cardiac enzymes are negative. TSH is 1.72. White count 6600 with H and H of 13 and 41.2 respectively, and platelet count 252,000. Portable chest shows no acute cardiopulmonary disease. Noncontrast CT of the brain shows no hemorrhage. Ventricles are normal size, mild cerebral volume loss with large amount of the sulci and no acute abnormality. ASSESSMENT: Nonketotic osmolar coma, type 2 diabetes mellitus, poorly controlled historically, hypertension, hyperlipidemia, hyperkalemia, acute renal insufficiency, and glaucoma. PLAN: The patient will be admitted to the ICU after stabilization in the ED, received 2 liters of fluids now blood pressure has improved. We will place on low dose Levophed and sliding scale insulin. TRANSINT:[id number] Voice Confirmation ID: [id number] DOCUMENT ID: [id number] KYLE STEEL MD at 0713 CC: [id number] DICTATION DATE: 05/25/19 172 SODIUM METHYLATE OPERATOR: 05/25/19 1812 ADM IN [place] [id number] [place] [address]
--- NOTE | 2019-05-26 18:39 | MORECARE ---
CASE MANAGEMENT DISCHARGE SUMMARY PATIENT: SHERRY FOLEY UNIT: [id number] ADM DATE: 05/25/19 AGE: 64 : 53 SEX: M ROOM/BED: D.2134 AUTHOR: AMY MICHAELS PHYSICIAN: REFERRING PHYSICIAN: KYLE STEEL MD DATE OF SERVICE: 05/26/19 Discharge Plan Patient Name: SHERRY FOLEY [facility] [facility] 1955 Planned Disposition: Anticipated Discharge Date: Discharge Date: Expected LOS: Initial Reviewer: [email or web address] Initial Review Date: 05/26/2019 Generated: 05/26/19 7:39 pm DCPIA - Discharge Planning Initial Assessment Updated by [email or web address]: Ariella Washburn on 05/26/19 6:37 pm * Is the patient Alert and Oriented? Yes * How many steps to enter\exit or inside your home? RAMP * PCP BENGALI * Pharmacy [facility] * Preadmission Environment Home Alone * ADLs Independent * Equipment Walker * List name and contact numbers for known caregivers / representatives who currently or will assist patient after discharge: JO[facility]QUÍN FOLEY [facility] - [phone] [facility] - [phone] * Verbal permission to speak to the caregivers and representatives has been obtained from the patient. Yes * Community resources currently utilized None * Additional services required to return to the preadmission environment? No * Can the patient safely return to the preadmission environment? Yes * Has this patient been hospitalized within the prior 30 days at any hospital? No Patient Name: SHERRY FOLEY Page 22626 at 1839 All edits/amendments must be made on the electronic document DICTATION DATE: 05/26/191838 PER ASSESSMENT NURSE: LUIS 05/26/191838 RPT#: [id number] DC DATE: STATUS: ADM IN [facility] [address] [place] [address] END OF REPORT
--- NOTE | 2019-05-26 18:46 | MORECARE ---
CASE MANAGEMENT DISCHARGE SUMMARY PATIENT: SHERRY FOLEY UNIT: [id number] ADM DATE: 05/25/19 AGE: 64 : 53 SEX: M ROOM/BED: D.2134 AUTHOR: BRANDODOC PHYSICIAN: REFERRING PHYSICIAN: KYLE NEWBY MD DATE OF SERVICE: 05/26/19 Discharge Plan Patient Name: SHERRY FOLEY Facility: [facility]:[place] : 1955 Planned Disposition: Anticipated Discharge Date: Discharge Date: Expected LOS: Initial Reviewer: [email or web address] Initial Review Date: 05/26/2019 Generated: 05/26/19 7:46 pm Comments DCP- Discharge Planning Updated by [email or web address]: Ariella Washburn on 05/26/19 5:[address] Patient Name: SHERRY FOLEY Admission Status: ER Accout number: [id number] Admission Date: 05-25-2019 : 1955 Admission Diagnosis:TYPE 2 DIABETES MELLITUS WITH HYPEROSMOLARITY WITH COMA Attending: KYLE NEWBY Current LOS: 1 Anticipated DC Date: Planned Disposition: Primary Insurance: Spotted Discharge Planning Comments: CM met with patient at bedside after explaining CM role and obtaining verbal consent. Patient lives at home alone where he is independent with his care and plans to return there upon discharge. Patient states that Dr. Newby wants him to live with someone. CM discussed availability / needs of home health and medical equipment. Patient denies any discharge needs at this time. Patient states he will have his family drive him home upon discharge. CM will continue to follow and assist as needed with discharge planning / needs. Terminologist: Ariella Washburn DCPIA - Discharge Planning Initial Assessment Updated by [email or web address]: Ariella Washburn on 05/26/19 6:37 pm * Is the patient Alert and Oriented? Yes * How many steps to enter\exit or inside your home? RAMP * PCP * Pharmacy [facility] * Preadmission Environment Home Alone * ADLs Independent * Equipment Walker * List name and contact numbers for known caregivers / representatives who currently or will assist patient after discharge: JOAQUÍN FOLEY [facility] - [phone] [facility] - [phone] * Verbal permission to speak to the caregivers and representatives has been obtained from the patient. Yes * Community resources currently utilized None * Additional services required to return to the preadmission environment? No * Can the patient safely return to the preadmission environment? Yes * Has this patient been hospitalized within the prior 30 days at any hospital? No Last DP export: 05/26/19 5:39 Patient Name: SHERRY FOLEY Page 48028 at 1846 All edits/amendments must be made on the electronic document DICTATION DATE: 05/26/191845 DRYING MACHINE OPERATOR: LUIS 05/26/191845 RPT#: [id number] DC DATE: STATUS: ADM IN [facility] [address] [place] [address] END OF REPORT
--- NOTE | 2019-05-26 19:10 | NUR ---
BEDSIDE REPORT RECEIVED FROM DAY SHIFT, PT CARE ASSUMED. INTRODUCED SELF AND WROTE NAME ON BOARD. PT SITTING UP IN BED, A&A, REQUESTING ALEXIS, PROVIDED. REPOSITIONED FOR COMFORT. DENIES ANY OTHER NEEDS AT THIS TIME. BED IN LOWEST POSITION, SR X2, CALL LIGHT WITHIN REACH. WILL CONTINUE TO MONITOR.
[2019-05-27] VITALS (7 sets, daily range): BP systolic 107–133; BP diastolic 53–70; Ht 177.8 cm; Wt 100.0 kg
--- NOTE | 2019-05-27 07:00 | NUR ---
RECEIEVED REPORT. ASSUMED CARE OF PATIENT. RESTING WITH EYES CLOSED. RESP EVEN AND UNLABORED. IV FLUIDS INFUSING ORDERED. NO DISTRESS. FRESH WATER PROVIDED UPON REQUEST AT THIS TIME. NO DISTRESS.
[2019-05-27 07:01] LABS: ANION GAP 9.1 mmol/L (8-16); CALCIUM 8.1 mg/dL (8.5-10.1); CARBON DIOXIDE 26.9 mmol/L (21.0-32.0); CREATININE - SERUM 1.2 mg/dL (0.6-1.3)
--- NOTE | 2019-05-27 09:25 | NUR ---
POTASSIUM SUPPLEMENT INITIATED PER EP AT THIS TIME, REDRAW AT 1330.
--- NOTE | 2019-05-27 11:36 | NUR ---
FSBS 242. 12 UNITS HUMULIN INSULIN ADMINISTERED PER SLIDING SCALE AT THIS TIME. NO DISTRESS.
--- NOTE | 2019-05-27 16:57 | NUR ---
FSBS 227. 12 UNITS HUMULIN R ADMINISTERED PER SLIDING SCALE. PATIENT SITTING UP TO CHAIR AT BEDSIDE AT THIS TIME, NO DISTRESS. MALE VISITOR AT BEDSIDE.
--- NOTE | 2019-05-27 22:36 | NUR ---
INITIAL ROUNDS COMPLETED AT 1920 HRS. PT DENIED ANY DISCOMFORT. ASSESSMENT COMPLETED AT 1954 HRS. VSS. PT ALERT AND ORIENTED TO PERSON,PLACE AND TIME. AMAYA. IV TO L HAND WITH 1/2NS AT 50CC/HR. IV PATENT. IV TO R HAND AND L EJ SL. MCLEAN DRAINING YELLOW URINE. LUNGS ESSENTIALLY CTA. ABD SOFT WITH ACTIVE BS NOTED. PM FSBS 315. 20 UNITS REG INSULIN GIVEN SUB-Q TO UPPER R ARM. SCHEDULED MEDS GIVEN. PM SNACK SERVED. PT CURRENTLY WATCHING TV. SR UP X2, CALL LIGHT WITHIN REACH.
[2019-05-28] VITALS: BP 131/71
--- NOTE | 2019-05-28 00:51 | NUR ---
PT RESTING WITH EYES CLOSED. RESP EVEN AND REGULAR. SR UP X2, CALL LIGHT WITHIN REACH.
--- NOTE | 2019-05-28 02:32 | NUR ---
PT UP IN BR. NO DISTRESS NOTED.
[2019-05-28 04:00] VITALS: BP 112/61
--- NOTE | 2019-05-28 04:29 | NUR ---
PT RESTING WITH EYES CLOSED. RESP EVEN AND REGULAR. SR UP X2, CALL LIGHT WITHIN REACH.
--- NOTE | 2019-05-28 06:03 | NUR ---
TYLENOL 500 MG PO GIVEN FOR C/O ABD PAIN. VSS THROUGHOUT NIGHT. HAD LARGE BM DURING SHIFT. NEEDS MET; WILL CONTINUE TO MONITOR.
[2019-05-28 06:20] LABS: CALC OSMOLALITY 286 mosm/kg (275-300); CALCIUM 8.4 mg/dL (8.5-10.1); CARBON DIOXIDE 26.8 mmol/L (21.0-32.0); CHLORIDE - SERUM 110 mmol/L (98-107); POTASSIUM - SERUM 3.7 mmol/L (3.5-5.1); SODIUM 142 mmol/L (136-145); UREA NITROGEN 13 mg/dL (7-18); eGFR NON AFRICAN AMERICAN 79 mL/min (90-120)
[2019-05-28 06:25] LABS: GLUCOSE 174 mg/dL (74-106)
--- NOTE | 2019-05-28 07:00 | NUR ---
RECEIVED REPORT. ASSUMED CARE OF PATIENT. CALL LIGHT WITHIN REACH. PATIENT RESTING SUPINE IN BED WITH EYES CLOSED. RESP EVEN AND UNLABORED. NO DISTRESS.
[2019-05-28 08:48] VITALS: BP 117/57
--- NOTE | 2019-05-28 11:45 | NUR ---
FSBS 218. 12 UNITS HUMULIN R INSULIN ADMINISTERED PER SLIDING SCALE.
--- NOTE | 2019-05-28 12:26 | NUR ---
PATIENT NEUROLOGIST LIGHT MULTIPLE TIMES THIS SHIFT TO ASK IF WE HAVE SEEN ANYBODY HE KNOWS FROM [facility], OR IF ANY BODY FROM HIS [facility] HAS COME TO VISIT HIS. PATIENT NOW REQUESTING A BANANA AND REQUEST PLACED TO DIETARY.
[2019-05-28 13:08] VITALS: BP 114/63
--- NOTE | 2019-05-28 14:52 | NUR ---
F/C REMOVED AFTER SPEAKING WITH . PATIENT INSTRUCTED THAT HE MUST URINATE BY 9PM THIS EVENING. PATIENT VERBALIZED UNDERSTANDING. NO DISTRESS.
--- NOTE | 2019-05-28 16:37 | NUR ---
FSBS 192. 8 UNITS HUMULIN R ADMINISTERED PER SLIDING SCALE.
[2019-05-28 17:00] VITALS: BP 134/69
--- NOTE | 2019-05-28 17:09 | MORECARE ---
CASE MANAGEMENT DISCHARGE SUMMARY PATIENT: SHERRY FOLEY UNIT: [id number] ADM DATE: 05/25/19 AGE: 64 : 53 SEX: M ROOM/BED: D.2134 AUTHOR: AMY MICHAELS PHYSICIAN: REFERRING PHYSICIAN: KYLE NEWBY MD DATE OF SERVICE: 05/28/19 Discharge Plan Patient Name: SHERRY FOLEY Facility: [facility]:[place] : 1955 Planned Disposition: Anticipated Discharge Date: Discharge Date: Expected LOS: Initial Reviewer: [email or web address] Initial Review Date: 05/26/2019 Generated: 05/28/19 6:08 pm Comments DCP- Discharge Planning Updated by [id number]: Ariella Washburn on 05/28/19 4:[address] CM received order for Home Health upon discharge. CM met with patient and he stated that he is going to be staying with his xswqywi-c-cgk when discharged. Patient doesn't know the address at this time. CM spoke to him regarding his choice for Home Health. Patient originally stated that he wanted the same Home Health that his ujqxpph-p-tba has then he stated that he wanted [facility]. CM didn't get KATHARINE signed at this time d/t inability to find out which company he is wanting. Will need to get with patient's brother -n-law to find out provider. D/c IMM signed 05/28/19 @ 1640. CM will continue to follow and assist as needed with discharge planning / needs. DCP- Discharge Planning Updated by [email or web address]: Ariella Washburn on 05/26/19 5:[address] Patient Name: SHERRY FOLEY Admission Status: ER Accout number: [id number] Admission Date: 05-25-2019 : 1955 Admission Diagnosis:TYPE 2 DIABETES MELLITUS WITH HYPEROSMOLARITY WITH COMA Attending: KYLE NEWBY Current LOS: 1 Anticipated DC Date: Planned Disposition: Primary Insurance: NOVASYCR Discharge Planning Comments: CM met with patient at bedside after explaining CM role and obtaining verbal consent. Patient lives at home alone where he is independent with his care and plans to return there upon discharge. Patient states that Dr. Newby wants him to live with someone. CM discussed availability / needs of home health and medical equipment. Patient denies any discharge needs at this time. Patient states he will have his family drive him home upon discharge. CM will continue to follow and assist as needed with discharge planning / needs. Planning Intern: Ariella Washburn DCPIA - Discharge Planning Initial Assessment Updated by [email or web address]: Ariella Washburn on 05/26/19 6:37 pm * Is the patient Alert and Oriented? Yes * How many steps to enter\exit or inside your home? RAMP * PCP MALTESE * Pharmacy [facility] * Preadmission Environment Home Alone * ADLs Independent * Equipment Walker * List name and contact numbers for known caregivers / representatives who currently or will assist patient after discharge: JOAQUÍN FOLEY - [phone] JUAN M MCLAUGHLIN [facility] - [phone] * Verbal permission to speak to the caregivers and representatives has been obtained from the patient. Yes * Community resources currently utilized None * Additional services required to return to the preadmission environment? No * Can the patient safely return to the preadmission environment? Yes * Has this patient been hospitalized within the prior 30 days at any hospital? No Last DP export: 05/26/19 5:46 Patient Name: SHERRY FOLEY Page [id number] at 1709 All edits/amendments must be made on the electronic document DICTATION DATE: 05/28/191707 DAILY SALES AUDIT CLERK: LUIS 05/28/191707 RPT#: [id number] IN DATE: STATUS: ADM IN [facility] [address] [place] [address] END OF REPORT
--- NOTE | 2019-05-28 19:31 | NUR ---
RECEIVED UP IN BED WITH EYES OPEN. ALERT AND ORIENTED X4. UP AD ORIANA. IV TO RIGHT HAND SL,IV TO LEFT HAND WITH 1/2 NS AT 50CC/HR. ALSO HAS LEFT EJ SL.. DENIES ANY NEEDS AT THIS TIME.
[2019-05-28 20:40] VITALS: BP 133/62
[2019-05-29 00:30] VITALS: BP 141/65
[2019-05-29 04:36] VITALS: BP 102/43
--- NOTE | 2019-05-29 07:28 | NUR ---
REPORT RECEIVED FROM ELECTRICAL ENGINEERING TECHNOLOGIST AND PATIENT CARE ASSUMED. PATIENT LAYING ON BACK IN BED WITH EYES CLOSED AND BREATHING EVENLY. WILL CONTINUE WITH PLAN OF CARE. SR UP X2 BED IN LOW POSITION AND CALL LIGHT IN REACH.
[2019-05-29 09:59] VITALS: BP 136/83
--- NOTE | 2019-05-29 10:10 | NUR ---
DR STEEL STATED THAT HE WANTS PATIENT UP AND AMBULATING WITH PT TODAY. SPOKE WITH BIBIANA ON FLOOR. HE INFORMED TO PUT IN ORDER FOR PT CONSULT. PATIENT SITTING UP ON SIDE OF BED NOW. PATIENT IS STABLE AND VSS. WILL CONTINUE TO MONITOR. SR UP X 2 BED IN LOW POSITION AND CALL LIGHT IN REACH.
[2019-05-29 12:32] VITALS: BP 130/77
--- NOTE | 2019-05-29 12:50 | NUR ---
PATIENT SITTING UP ON SIDE OF BED VISITING WITH BROTHER IN LAW.PATIENT IS STABLE AND VSS. WILL CONTINUE TO MONITOR. CALL LIGHT IN REACH.
--- NOTE | 2019-05-29 15:35 | NUR ---
PATIENT SITTING UP TO BS TABLE. PATIENT IS STABLE AND VSS. PATIENT DENIES ANY NEEDS OR PAIN. WILL CONTINUE TO MONITOR. SR UP X 2 BED IN LOW POSITION AND CALL LIGHT IN REACH.
--- NOTE | 2019-05-29 15:48 | MORECARE ---
CASE MANAGEMENT DISCHARGE SUMMARY PATIENT: SHERRY FOLEY UNIT: [id number] ADM DATE: 05/25/19 AGE: 64 : 53 SEX: M ROOM/BED: D.2134 AUTHOR: AMY MICHAELS PHYSICIAN: REFERRING PHYSICIAN: KYLE NEWBY MD DATE OF SERVICE: 05/29/19 Discharge Plan Patient Name: SHERRY FOLEY Facility: [facility]:[place] : 1955 Planned Disposition: Anticipated Discharge Date: Discharge Date: Expected LOS: Initial Reviewer: [email or web address] Initial Review Date: 05/26/2019 Generated: 05/29/19 4:47 pm Comments DCP- Discharge Planning Updated by [email or web address]: Ariella Washburn on 05/28/19 4:[address] CM received order for Home Health upon discharge. CM met with patient and he stated that he is going to be staying with his yxcbpbr-i-uqm when discharged. Patient doesn't know the address at this time. CM spoke to him regarding his choice for Home Health. Patient originally stated that he wanted the same Home Health that his khytomm-e-pdn has then he stated that he wanted [facility]. CM didn't get KATHARINE signed at this time d/t inability to find out which company he is wanting. Will need to get with patient's brother -n-law to find out provider. D/c IMM signed 05/28/19 @ 1640. CM will continue to follow and assist as needed with discharge planning / needs. DCP- Discharge Planning Updated by [email or web address]: Ariella Washburn on 05/26/19 5:[address] Patient Name: SHERRY FOLEY Admission Status: ER Accout number: [id number] Admission Date: 05-25-2019 : 1955 Admission Diagnosis:TYPE 2 DIABETES MELLITUS WITH HYPEROSMOLARITY WITH COMA Attending: KYLE NEWBY Current LOS: 1 Anticipated DC Date: Planned Disposition: Primary Insurance: NOVASYCR Discharge Planning Comments: CM met with patient at bedside after explaining CM role and obtaining verbal consent. Patient lives at home alone where he is independent with his care and plans to return there upon discharge. Patient states that Dr. Newby wants him to live with someone. CM discussed availability / needs of home health and medical equipment. Patient denies any discharge needs at this time. Patient states he will have his family drive him home upon discharge. CM will continue to follow and assist as needed with discharge planning / needs. Shipping Coordinator: Ariella Washburn DCPIA - Discharge Planning Initial Assessment Updated by [id number]: Ariella Washburn on 05/26/19 6:37 pm * Is the patient Alert and Oriented? Yes * How many steps to enter\exit or inside your home? RAMP * PCP URDU * Pharmacy [facility] * Preadmission Environment Home Alone * ADLs Independent * Equipment Walker * List name and contact numbers for known caregivers / representatives who currently or will assist patient after discharge: JOAQUÍN FOLEY - [phone] JUAN M MCLAUGHLIN [facility] - [phone] * Verbal permission to speak to the caregivers and representatives has been obtained from the patient. Yes * Community resources currently utilized None * Additional services required to return to the preadmission environment? No * Can the patient safely return to the preadmission environment? Yes * Has this patient been hospitalized within the prior 30 days at any hospital? No External Providers External Provider: [facility] Next Contact Date: 05/29/2019 Service Request Date: Service Type: Resolution: Reviewer: Comments: Coverage Notice Reviewer: [id number] - Ariella Maddison Notice Issued Date-Time: 05/28/2019 16:40 Notice Type: IM Discharge Notice Notice Delivered To: Patient Relationship to Patient: Self Financial Advisor Trainee Name: Delivery Method: HAND - Hand Delivered Ying Days: Prior Verbal Notification: Recipient Understood Notice: Yes Recipient Signature: Yes Med Rec Note Co-signed by Attending: Coverage Notice Comment: Last DP export: 05/28/19 4:08 Patient Name: SHERRY FOLEY Page [id number] at 1548 All edits/amendments must be made on the electronic document DICTATION DATE: 05/29/191546 ELECTRIC WELDER HELPER: LUIS 05/29/191546 RPT#: [id number] DC DATE: STATUS: ADM IN [facility] [address] [place] [address] END OF REPORT
--- NOTE | 2019-05-29 15:56 | MORECARE ---
CASE MANAGEMENT DISCHARGE SUMMARY PATIENT: SHERRY FOLEY UNIT: [id number] ADM DATE: 05/25/19 AGE: 64 : 53 SEX: M ROOM/BED: D.2134 AUTHOR: AMY MICHAELS PHYSICIAN: REFERRING PHYSICIAN: KYLE NEWBY MD DATE OF SERVICE: 05/29/19 Discharge Plan Patient Name: SHERRY FOLEY Facility: [facility]:[place] : 1955 Planned Disposition: Home with Home Health Anticipated Discharge Date: 05/29/19 Discharge Date: Expected LOS: 4 Initial Reviewer: [email or web address] Initial Review Date: 05/26/2019 Generated: 05/29/19 4:56 pm Comments DCP- Discharge Planning Updated by [email or web address]: Ariella Washburn on 05/28/19 4:[address] CM received order for Home Health upon discharge. CM met with patient and he stated that he is going to be staying with his rlopmye-o-uko when discharged. Patient doesn't know the address at this time. CM spoke to him regarding his choice for Home Health. Patient originally stated that he wanted the same Home Health that his exbtpeo-f-tds has then he stated that he wanted [facility]. CM didn't get KATHARINE signed at this time d/t inability to find out which company he is wanting. Will need to get with patient's brother -n-law to find out provider. D/c IMM signed 05/28/19 @ 1640. CM will continue to follow and assist as needed with discharge planning / needs. DCP- Discharge Planning Updated by [email or web address]: Ariella Washburn on 05/26/19 5:[address] Patient Name: SHERRY FOLEY Admission Status: ER Accout number: [id number] Admission Date: 05-25-2019 : 1955 Admission Diagnosis:TYPE 2 DIABETES MELLITUS WITH HYPEROSMOLARITY WITH COMA Attending: KYLE NEWBY Current LOS: 1 Anticipated DC Date: Planned Disposition: [facility] Discharge Planning Comments: CM met with patient at bedside after explaining CM role and obtaining verbal consent. Patient lives at home alone where he is independent with his care and plans to return there upon discharge. Patient states that Dr. Newby wants him to live with someone. CM discussed availability / needs of home health and medical equipment. Patient denies any discharge needs at this time. Patient states he will have his family drive him home upon discharge. CM will continue to follow and assist as needed with discharge planning / needs. Care Trainer: Ariella DUPONT - Discharge Planning Initial Assessment Updated by [id number]: Ariella Washburn on 05/26/19 6:37 pm * Is the patient Alert and Oriented? Yes * How many steps to enter\exit or inside your home? RAMP * PCP BELIZE[place] * Pharmacy [facility] * Preadmission Environment Home Alone * ADLs Independent * Equipment Walker * List name and contact numbers for known caregivers / representatives who currently or will assist patient after discharge: JOAQUÍN ONEAL - [phone] JUAN M Guillory-[facility] - [phone] * Verbal permission to speak to the caregivers and representatives has been obtained from the patient. Yes * Community resources currently utilized None * Additional services required to return to the preadmission environment? No * Can the patient safely return to the preadmission environment? Yes * Has this patient been hospitalized within the prior 30 days at any hospital? No Coverage Notice Reviewer: [id number] Kahlil Washburn Notice Issued Date-Time: 05/28/2019 16:40 Notice Type: IM Discharge Notice Notice Delivered To: Patient Relationship to Patient: Self Tailer Out Name: Delivery Method: HAND - Hand Delivered Ying Days: Prior Verbal Notification: Recipient Understood Notice: Yes Recipient Signature: Yes Med Rec Note Co-signed by Attending: Coverage Notice Comment: Reviewer: [id number] Bloom Notice Issued Date-Time: 05/29/2019 15:35 Notice Type: IM Discharge Notice Notice Delivered To: Patient Relationship to Patient: Tailer Out Name: Delivery Method: HAND - Hand Delivered Ying Days: Prior Verbal Notification: Recipient Understood Notice: Yes Recipient Signature: Yes Med Rec Note Co-signed by Attending: Coverage Notice Comment: Reviewer: [id number] Bloom Notice Issued Date-Time: 05/29/2019 15:35 Notice Type: Patient Choice Letter Notice Delivered To: Patient Relationship to Patient: Tailer Out Name: Delivery Method: HAND - Hand Delivered Ying Days: Prior Verbal Notification: Recipient Understood Notice: Yes Recipient Signature: Yes Med Rec Note Co-signed by Attending: Coverage Notice Comment: ELITE Last DP export: 05/29/19 2:48 Patient Name: SHERRY FOLEY Page [id number] at 1556 All edits/amendments must be made on the electronic document DICTATION DATE: 05/29/191555 DIE EQUIPMENT OPERATOR: LUIS 05/29/191555 RPT#: [id number] DC DATE: STATUS: ADM IN [facility] [address] [place] [address] END OF REPORT
--- NOTE | 2019-05-29 16:04 | MORECARE ---
CASE MANAGEMENT DISCHARGE SUMMARY PATIENT: SHERRY FOLEY UNIT: [id number] ADM DATE: 05/25/19 AGE: 64 : 53 SEX: M ROOM/BED: D.2134 AUTHOR: BRANDODOC PHYSICIAN: REFERRING PHYSICIAN: KYLE NEWBY MD DATE OF SERVICE: 05/29/19 Discharge Plan Patient Name: SHERRY FOLEY Facility: [facility]:[place] : 1955 Planned Disposition: Home with Home Health Anticipated Discharge Date: 05/29/19 Discharge Date: Expected LOS: 4 Initial Reviewer: [email or web address] Initial Review Date: 05/26/2019 Generated: 05/29/19 5:04 pm Comments DCP- Discharge Planning Updated by [email or web address]: Vincent Bloom on 05/29/19 3:[address] Patient Name: SHERRY FOLEY Encounter No: [id number] : 1955 Primary Insurance: NOVASYSMCR Anticipated DC Date: 05-29-2019 Planned Disposition: Home with Home Health External Planned Provider: [facility] DCP follow-up note: CM NOTIFIED BY BEDSIDE NURSE THAT PT IS WAITING ON HOME HEALTH ARRANGEMENTS FOR DISCHARGE HOME. CM MET WITH PT IN ROOM TO DISCUSS DISCHARGE NEEDS AND PLANNING. PT WANTS TO USE WHO H IS BROTHER USES FOR HOME HEALTH; PT CALLED HIS BROTHER IN LAW, JUAN M, , WHO ADVISED [facility]. CHOICE COMPLETED BY PT FOR [facility]. DISCHARGE ADDRESS WILL BE [address] [place] [id number]; JUAN M WILL BE RESIDENCY DIRECTOR AT [phone]. CM DISCUSSED AVAILABILITY OF HOME HEALTH, REHAB SERVICES AND MEDICAL EQUIPMENT. PT DENIES FURTHER DISCHARGE NEEDS. BROTHER IN LAW TO TRANSPORT HOME AT DISCHARGE. IMPORTANT MESSAGE FROM MEDICARE PROVIDED AND EXPLAINED. CM CALLED [facility], , SPOKE TO LULI REFERRAL PROVIDED, PT PLACED ON SCHEDULE FOR WEDNESDAY; CM ADVISED IT MAY BE WEDNESDAY FOR ADMIT. CM SPOKE TO PT IN ROOM WHO IS IN AGREEMENT WITH PLAN AND DOES NOT WANT TO USE ANOTHER HOME HEALTH COMPANY. CM FAXED REFERRAL AND DISCHARGE INFORMATION TO [facility] AT [phone]. BEDSIDE NURSE AND UNIVERSAL BRANCH CONSULTANT NURSE NOTIFIED. Vincent Merle, CASE MANAGEMENT DCP- Discharge Planning Updated by [email or web address]: Ariella Washburn on 05/28/19 4:[address] CM received order for Home Health upon discharge. CM met with patient and he stated that he is going to be staying with his umwyxzj-s-acp when discharged. Patient doesn't know the address at this time. CM spoke to him regarding his choice for Home Health. Patient originally stated that he wanted the same Home Health that his bswfnsh-o-jzu has then he stated that he wanted [facility]. CM didn't get KATHARINE signed at this time d/t inability to find out which company he is wanting. Will need to get with patient's brother -n-law to find out provider. D/c IMM signed 05/28/19 @ 1640. CM will continue to follow and assist as needed with discharge planning / needs. DCP- Discharge Planning Updated by [email or web address]: Ariella Washburn on 05/26/19 5:[address] Patient Name: SHERRY FOLEY Admission Status: ER Accout number: [id number] Admission Date: 05-25-2019 : 1955 Admission Diagnosis:TYPE 2 DIABETES MELLITUS WITH HYPEROSMOLARITY WITH COMA Attending: KYLE NEWBY Current LOS: 1 Anticipated DC Date: Planned Disposition: Primary Insurance: [facility] Discharge Planning Comments: CM met with patient at bedside after explaining CM role and obtaining verbal consent. Patient lives at home alone where he is independent with his care and plans to return there upon discharge. Patient states that Dr. Newby wants him to live with someone. CM discussed availability / needs of home health and medical equipment. Patient denies any discharge needs at this time. Patient states he will have his family drive him home upon discharge. CM will continue to follow and assist as needed with discharge planning / needs. Bridge Manager: Ariella Washburn DCPIA - Discharge Planning Initial Assessment Updated by [email or web address]: Ariella Washburn on 05/26/19 6:37 pm * Is the patient Alert and Oriented? Yes * How many steps to enter\exit or inside your home? RAMP * PCP * Pharmacy [facility] * Preadmission Environment Home Alone * ADLs Independent * Equipment Walker * List name and contact numbers for known caregivers / representatives who currently or will assist patient after discharge: JOAQUÍN ONEAL - [phone] JUAN M Viramontes-[facility] - [phone] * Verbal permission to speak to the caregivers and representatives has been obtained from the patient. Yes * Community resources currently utilized None * Additional services required to return to the preadmission environment? No * Can the patient safely return to the preadmission environment? Yes * Has this patient been hospitalized within the prior 30 days at any hospital? No Coverage Notice Reviewer: [id number] Kahlil Washburn Notice Issued Date-Time: 05/28/2019 16:40 Notice Type: IM Discharge Notice Notice Delivered To: Patient Relationship to Patient: Self Personnel Research Scientist Name: Delivery Method: HAND - Hand Delivered Ying Days: Prior Verbal Notification: Recipient Understood Notice: Yes Recipient Signature: Yes Med Rec Note Co-signed by Attending: Coverage Notice Comment: Reviewer: [email or web address] Bloom Notice Issued Date-Time: 05/29/2019 15:35 Notice Type: IM Discharge Notice Notice Delivered To: Patient Relationship to Patient: Personnel Research Scientist Name: Delivery Method: HAND - Hand Delivered Ying Days: Prior Verbal Notification: Recipient Understood Notice: Yes Recipient Signature: Yes Med Rec Note Co-signed by Attending: Coverage Notice Comment: Reviewer: [id number] Bloom Notice Issued Date-Time: 05/29/2019 15:35 Notice Type: Patient Choice Letter Notice Delivered To: Patient Relationship to Patient: Personnel Research Scientist Name: Delivery Method: HAND - Hand Delivered Ying Days: Prior Verbal Notification: Recipient Understood Notice: Yes Recipient Signature: Yes Med Rec Note Co-signed by Attending: Coverage Notice Comment: ELITE Last DP export: 05/29/19 2:56 Patient Name: SHERRY FOLEY Page 06619 at 1604 All edits/amendments must be made on the electronic document DICTATION DATE: 05/29/19 1604 SHOT TUBE MACHINE TENDER: LUIS 05/29/19 1604 RPT#: [id number] DC DATE: STATUS: ADM IN [facility] [address] [place] [address] END OF REPORT
[2019-05-29] MEDS ORDERED: HUMULIN REG INJ [BKC SC (17:15)
[2019-05-29] MEDS ORDERED: Lantus Insulin SC (17:15)
[2019-05-29 18:26] VITALS: BP 120/50
--- NOTE | 2019-05-30 09:16 | MORECARE ---
CASE MANAGEMENT DISCHARGE SUMMARY PATIENT: SHERRY FOLEY UNIT: [id number] ADM DATE: 05/25/19 AGE: 64 : 51 SEX: M ROOM/BED: D.2134 AUTHOR: AMY MICHAELS PHYSICIAN: REFERRING PHYSICIAN: KYLE NEWBY MD DATE OF SERVICE: 05/30/19 Discharge Plan Patient Name: SHERRY FOLEY Facility: [facility]:[place] : 1955 Planned Disposition: Home with Home Health Anticipated Discharge Date: 05/29/19 Discharge Date: 05/29/2019 Expected LOS: 4 Initial Reviewer: [email or web address] Initial Review Date: 05/26/2019 Generated: 05/30/19 10:16 am Comments DCP- Discharge Planning Updated by [id number]: Vincent Bloom on 05/29/19 3:[address] Patient Name: SHERRY FOLEY Encounter No: [id number] : 1955 Primary Insurance: [id number] Anticipated DC Date: 05-29-2019 Planned Disposition: Home with Home Health External Planned Provider: [facility] DCP follow-up note: CM NOTIFIED BY BEDSIDE NURSE THAT PT IS WAITING ON HOME HEALTH ARRANGEMENTS FOR DISCHARGE HOME. CM MET WITH PT IN ROOM TO DISCUSS DISCHARGE NEEDS AND PLANNING. PT WANTS TO USE WHO H IS BROTHER USES FOR HOME HEALTH; PT CALLED HIS BROTHER IN LAW, UJAN M, , WHO ADVISED [facility]. CHOICE COMPLETED BY PT FOR [facility]. DISCHARGE ADDRESS WILL BE [address] [place] [id number]; JUAN M WILL BE TELEPHONE SERVICE REPRESENTATIVE AT [phone]. CM DISCUSSED AVAILABILITY OF HOME HEALTH, REHAB SERVICES AND MEDICAL EQUIPMENT. PT DENIES FURTHER DISCHARGE NEEDS. BROTHER IN LAW TO TRANSPORT HOME AT DISCHARGE. IMPORTANT MESSAGE FROM MEDICARE PROVIDED AND EXPLAINED. CM CALLED [facility], , SPOKE TO LULI REFERRAL PROVIDED, PT PLACED ON SCHEDULE FOR WEDNESDAY; CM ADVISED IT MAY BE WEDNESDAY FOR ADMIT. CM SPOKE TO PT IN ROOM WHO IS IN AGREEMENT WITH PLAN AND DOES NOT WANT TO USE ANOTHER HOME HEALTH COMPANY. CM FAXED REFERRAL AND DISCHARGE INFORMATION TO [facility] AT [phone]. BEDSIDE NURSE AND DIRECTOR OF TRAINING NURSE NOTIFIED. Vincent Bloom, CASE MANAGEMENT DCP- Discharge Planning Updated by [email or web address]: Ariella Washburn on 05/28/19 4:[address] CM received order for Home Health upon discharge. CM met with patient and he stated that he is going to be staying with his [id number] when discharged. Patient doesn't know the address at this time. CM spoke to him regarding his choice for Home Health. Patient originally stated that he wanted the same Home Health that his fjyigwz-u-twd has then he stated that he wanted [facility]. CM didn't get KATHARINE signed at this time d/t inability to find out which company he is wanting. Will need to get with patient's brother -n-law to find out provider. D/c IMM signed 05/28/19 @ 1640. CM will continue to follow and assist as needed with discharge planning / needs. 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 Patient lives at home alone where he is independent with his care and plans to return there upon discharge. Patient states that Dr. Newby wants him to live with someone. CM discussed availability / needs of home health and medical equipment. Patient denies any discharge needs at this time. Patient states he will have his family drive him home upon discharge. CM will continue to follow and assist as needed with discharge planning / needs. Spray Dry Operator: Ariella Washburn DCPIA - Discharge Planning Initial Assessment Updated by [id number]: Ariella Washburn on 05/26/19 6:37 pm * Is the patient Alert and Oriented? Yes * How many steps to enter\exit or inside your home? RAMP * PCP * Pharmacy [facility] * Preadmission Environment Home Alone * ADLs Independent * Equipment Walker * List name and contact numbers for known caregivers / representatives who currently or will assist patient after discharge: JOAQUÍN ONEAL - [phone] JUAN M [place] -[facility] - [phone] * Verbal permission to speak to the caregivers and representatives has been obtained from the patient. Yes * Community resources currently utilized None * Additional services required to return to the preadmission environment? No * Can the patient safely return to the preadmission environment? Yes * Has this patient been hospitalized within the prior 30 days at any hospital? No Coverage Notice Reviewer: [id number] Kahlil Washburn Notice Issued Date-Time: 05/28/2019 16:40 Notice Type: IM Discharge Notice Notice Delivered To: Patient Relationship to Patient: Self Commissary Representative Name: Delivery Method: HAND - Hand Delivered Ying Days: Prior Verbal Notification: Recipient Understood Notice: Yes Recipient Signature: Yes Med Rec Note Co-signed by Attending: Coverage Notice Comment: Reviewer: [email or web address] Bloom Notice Issued Date-Time: 05/29/2019 15:35 Notice Type: IM Discharge Notice Notice Delivered To: Patient Relationship to Patient: Commissary Representative Name: Delivery Method: HAND - Hand Delivered Ying Days: Prior Verbal Notification: Recipient Understood Notice: Yes Recipient Signature: Yes Med Rec Note Co-signed by Attending: Coverage Notice Comment: Reviewer: [email or web address] Bloom Notice Issued Date-Time: 05/29/2019 15:35 Notice Type: Patient Choice Letter Notice Delivered To: Patient Relationship to Patient: Commissary Representative Name: Delivery Method: HAND - Hand Delivered Ying Days: Prior Verbal Notification: Recipient Understood Notice: Yes Recipient Signature: Yes Med Rec Note Co-signed by Attending: Coverage Notice Comment: DEEPA Rivera DP export: 05/29/19 3:04 Patient Name: SHERRY FOLEY Page [id number] at 0916 All edits/amendments must be made on the electronic document DICTATION DATE: 05/30/19915 RELIABILITY TECHNICIANS: LUIS 05/30/19915 RPT#: [id number] DC DATE:05/29/19 STATUS: DIS IN [facility] [address] [place] [address] END OF REPORT
== END 2019-05-29 18:29 | disposition home health service (06) | DRG 637 ==
LOC: D.ER 14:59 → D.ICU 15:56 → D.M2 15:56
PROVIDERS: Emergency Medicine; ADMIT Family Medicine; ATTEND Family Medicine
PROC: 05HQ33Z Insertion of Infusion Device into Left External Jugular Vein, Percutaneous Approach (ICD-10-PCS; principal; 2019-05-25)
DX: E11.01 Type 2 diabetes mellitus with hyperosmolarity with coma (principal); G93.41 Metabolic encephalopathy; I10 Essential (primary) hypertension; E78.5 Hyperlipidemia, unspecified; H40.9 Unspecified glaucoma; N28.9 Disorder of kidney and ureter, unspecified; E87.5 Hyperkalemia; I95.9 Hypotension, unspecified; Z91.14 Patient's other noncompliance with medication regimen